=== PATIENT | female | born 1945 | race Hispanic/Latino ===

== ENCOUNTER 2022-04-05 08:30 | Inpatient (IN) | payer MEDICARE ==
[2022-04-02 16:41] LABS: BASOPHILS % (AUTO) 0.2 % (0.0-5.0); EOSINOPHILS % (AUTO) 2.4 % (0.0-8.0); HEMATOCRIT 34.2 % (36-48); LYMPHOCYTES % (AUTO) 28.7 % (21.0-51.0); MEAN CORPUSCULAR HEMOGLOBIN 28.4 pg (27.0-33.0); MEAN CORPUSCULAR HGB CONC 31.9 g/dL (32.0-36.0); MEAN CORPUSCULAR VOLUME 89.1 fL (79-99); MONOCYTES % (AUTO) 5.8 % (3.0-13.0); NEUTROPHILS % (AUTO) 62.7 % (40.0-77.0); PLATELET COUNT (AUTO) 192 K/uL (130-400); RED BLOOD CELL COUNT(AUTO) 3.84 MIL/uL (4.00-5.50); RED CELL DISTRIBUTION WIDTH 18.4 % (11.0-15.5); WHITE BLOOD COUNT (AUTO) 8.3 K/uL (4.8-10.8)
[2022-04-02 16:55] LABS: INR 0.93 (0.85-1.15); PROTHROMBIN TIME 9.9 SEC (9.6-11.6)
[2022-04-02 16:57] LABS: CREATININE 1.6 mg/dL (0.5-1.5); PARTIAL THROMBOPLASTIN TIME 24.7 SEC (26.3-35.5); POTASSIUM 4.4 mmol/L (3.5-5.1); TOTAL PROTEIN, SERUM 8.6 g/dL (6.0-8.3)
[2022-04-02 17:16] LABS: ABG BASE EXCESS 2.1 mmol/L (-2.0-3.0); ABG OXYGEN SATURATION 96.6 % (95.0-99.0); ABG PCO2 38 mmHg (32-45)
[2022-04-02 17:40] LABS: B-TYPE NATRIURETIC PEPTIDE 405 pg/mL (0-100)
[2022-04-04 10:06] VITALS: BP 140/71
[~2022-04-05] VITALS: Ht 165.1 cm; Wt 73.0 kg
[2022-04-05] VITALS (24 sets, daily range): BP systolic 76–155; BP diastolic 41–75
[~2022-04-05 08:30] MED LIST: ATOR10TA69 PO; CARV12.511 PO; CEFAZOLIN SODIUM 1 GM VIAL ONE; DAPA10TA PO; FUROSEMIDE PO; INSU100V37 SQ; METF-445 PO; SPIR25TA6 PO
[2022-04-05] MEDS ORDERED: NOREPINEPHRINE BITARTRATE 8 MG in 0.9% NACL 250ML 250 ML IV PRN (09:30)
[2022-04-05] MEDS ORDERED: EPINEPHRINE PF 1MG (1:1,000) 10 MG in 0.9% NACL 250ML 240 ML IV PRN ×2 (09:30→16:00)
[2022-04-05] MEDS ORDERED: AMINOCAPROIC ACID 5,000MG VIAL 15,000 MG in 0.9% NACL 500ML IV.SOLN 420 ML IV PRN (09:30)
[2022-04-05] MEDS ORDERED: 0.9%NACL 1000ML 1,000 ML IV ONE (10:03)
[2022-04-05] MEDS: CEFAZOLIN SODIUM 1 GM VIAL ONE ×2 (10:20→14:30)
[2022-04-05] MEDS ORDERED: NITROGLYCERIN 50MG/D5W 250ML 1 BOT ONE (10:57)
[2022-04-05] MEDS ORDERED: LIDOCAINE PF 100MG/5ML (2%) SYRINGE 5ML ONE (12:24)
[2022-04-05] MEDS ORDERED: PROTAMINE SULFATE 10 MG/ML 25ML VIAL IV ONE (12:24)
[2022-04-05] MEDS ORDERED: ESMOLOL HCL 10 MG/ML 10 ML VIAL ONE (12:24)
[2022-04-05] MEDS ORDERED: FENTANYL CITRATE PF 50 MCG/1 ML 20ML VIAL IJ ONE (12:25)
[2022-04-05] MEDS ORDERED: MIDAZOLAM HCL 1 MG/ML 2ML VIAL ONE (12:25)
[2022-04-05] MEDS ORDERED: ROCURONIUM 10MG/1ML SYR 10 MG/ML ML ONE (12:25)
[2022-04-05] MEDS ORDERED: HEPARIN 10,000 UNIT/10ML (1,000 UNIT/ML) VIAL ONE (12:25)
[2022-04-05] MEDS ORDERED: AMINOCAPROIC ACID 5,000MG VIAL ONE (12:25)
[2022-04-05] MEDS ORDERED: PROPOFOL 10 MG/ML 20ML VIAL IV ONE (12:25)
[2022-04-05] MEDS ORDERED: EPINEPHRINE PF 1MG (1:1,000) 1 MG/ML AMP ONE (12:25)
[2022-04-05] MEDS ORDERED: NOREPINEPHRINE BITARTRATE 1 MG/1 ML ML IV ONE (12:25)
[2022-04-05] MEDS ORDERED: SODIUM BICARB 50MEQ 50ML VIAL 100 ML ONE (12:25)
[2022-04-05] MEDS ORDERED: KETAMINE HCL 100 MG/ML 5ML VIAL IJ ONE (13:57)
[2022-04-05] MEDS ORDERED: ROPIVACAINE 0.5% 5MG/ML 30ML IJ ONE (14:30)
[2022-04-05] MEDS ORDERED: CACL 1GM SYG IVP ONE (14:52)
[2022-04-05] MEDS ORDERED: ALBUMIN (HUMAN) 25% 50 ML IV ONE (14:52)
[2022-04-05] MEDS ORDERED: FUROSEMIDE 20MG VIAL IVP ONE (14:52)
[2022-04-05] MEDS ORDERED: PHENYLEPHRINE HCL 10 MG/ML 1ML VIAL IV ONE (14:52)
[2022-04-05] MEDS ORDERED: LIDOCAINE PF 100MG/5ML (2%) SYRINGE 5ML IVP ONE (14:52)
[2022-04-05] MEDS ORDERED: AMINOCAPROIC ACID 5,000MG VIAL IV ONE (14:52)
[2022-04-05 15:18] LABS: ABG BASE EXCESS -4.5 mmol/L (-2.0-3.0); ABG HCO3 20.2 mmol/L (21.0-28.0); ABG OXYGEN SATURATION 98.1 % (95.0-99.0); ABG PCO2 36 mmHg (32-45)
[2022-04-05 15:52] LABS: ABG BASE EXCESS -1.7 mmol/L (-2.0-3.0); ABG HCO3 21.3 mmol/L (21.0-28.0); ABG OXYGEN SATURATION 99.2 % (95.0-99.0); ABG PCO2 29 mmHg (32-45)
[2022-04-05] MEDS ORDERED: 0.9% NACL 500ML IV.SOLN 500 ML IV SCH (16:00)
[2022-04-05] MEDS ORDERED: POTASSIUM PHOS 15 mMOL+NS250ML 250 ML IV PRN (16:00)
[2022-04-05] MEDS ORDERED: ONDANSETRON 4MG INJ IV PRN (16:00)
[2022-04-05] MEDS ORDERED: ACETAMINOPHEN 325 MG TAB PO PRN ×2 (16:00)
[2022-04-05] MEDS ORDERED: 0.9%NACL 1000ML 1,000 ML IV SCH (16:00)
[2022-04-05] MEDS ORDERED: ACETAMINOPHEN 650 MG SUPPOSITORY RC PRN (16:00)
[2022-04-05] MEDS ORDERED: MORPHINE 4 MG SYG IV PRN (16:00)
[2022-04-05] MEDS ORDERED: MORPHINE 2 MG SYG IV PRN (16:00)
[2022-04-05] MEDS ORDERED: CALCIUM GLUC 1GM 1 GM in 0.9%NACL 50ML 50 ML IV PRN (16:00)
[2022-04-05] MEDS ORDERED: GLUCAGON 1MG KIT 1 MG ML IM PRN (16:00)
[2022-04-05] MEDS ORDERED: DEXTROSE 50%-WATER 50 ML DISP.SYRIN IV PRN (16:00)
[2022-04-05] MEDS ORDERED: PROPOFOL 1000 MG/100 ML 100 ML IV PRN (16:00)
[2022-04-05] MEDS ORDERED: NITROGLYCERIN 50MG/D5W 250ML 250 BOT IV SCH (16:00)
[2022-04-05] MEDS ORDERED: MAGNESIUM 2GM PREMIX 50ML 50 ML IV PRN (16:00)
[2022-04-05] MEDS ORDERED: NOREPINEPHRIN 4MG/NS 250ML 250 ML IV PRN (16:00)
[2022-04-05] MEDS ORDERED: ALBUMIN (HUMAN) 5% 250 ML IV PRN (16:00)
[2022-04-05] MEDS ORDERED: INSULIN REGULAR, HUMAN 3ML 100 UNIT in 0.9%NACL 100ML 99 ML IV SCH ×2 (16:00)
[2022-04-05] MEDS ORDERED: TRAMADOL HCL 50 MG TABLET PO PRN (16:00)
[2022-04-05] MEDS ORDERED: AMINOCAPROIC ACID 5,000MG VIAL 15,000 MG in 0.9% NACL 250ML 250 ML IV SCH (16:00)
[2022-04-05] MEDS ORDERED: 0.9%NACL 10ML VIAL IVP PRN (16:00)
[2022-04-05 16:26] LABS: ABG BASE EXCESS 5.4 mmol/L (-2.0-3.0); ABG HCO3 27.2 mmol/L (21.0-28.0); ABG OXYGEN SATURATION 98.8 % (95.0-99.0); ABG PCO2 29 mmHg (32-45)
[2022-04-05] MEDS ORDERED: AMIODARONE 150MG VIAL ONE (16:46)
[2022-04-05 16:53] LABS: ABG BASE EXCESS -4.8 mmol/L (-2.0-3.0); ABG HCO3 18.6 mmol/L (21.0-28.0); ABG OXYGEN SATURATION 99.1 % (95.0-99.0); ABG PCO2 27 mmHg (32-45)
[2022-04-05] MEDS ORDERED: 0.2% ROPIVACAINE 600ML Q-PUMP IRRIG ONE (17:00)
[2022-04-05 17:22] LABS: ABG HCO3 21.9 mmol/L (21.0-28.0); ABG OXYGEN SATURATION 98.6 % (95.0-99.0); ABG PCO2 34 mmHg (32-45)
[2022-04-05] MEDS ORDERED: GLYCOPYRROLATE 1 MG/5 ML SYRINGE ONE (17:22)
[2022-04-05 18:15] LABS: HEMATOCRIT 27.1 % (36-48); MEAN CORPUSCULAR HEMOGLOBIN 28.9 pg (27.0-33.0); MEAN CORPUSCULAR HGB CONC 33.2 g/dL (32.0-36.0); MEAN CORPUSCULAR VOLUME 87.1 fL (79-99); RED BLOOD CELL COUNT(AUTO) 3.11 MIL/uL (4.00-5.50); RED CELL DISTRIBUTION WIDTH 17.4 % (11.0-15.5); WHITE BLOOD COUNT (AUTO) 12.8 K/uL (4.8-10.8)
[2022-04-05 18:28] LABS: CREATININE 1.1 mg/dL (0.5-1.5); MAGNESIUM 3.1 mg/dL (1.80-2.40); PHOSPHORUS 4.1 mg/dL (2.5-4.9); POTASSIUM 4.5 mmol/L (3.5-5.1)
[2022-04-05 18:29] LABS: INR 1.09 (0.85-1.15); PROTHROMBIN TIME 11.8 SEC (9.6-11.6)
[2022-04-05 18:31] LABS: PARTIAL THROMBOPLASTIN TIME 25.1 SEC (26.3-35.5)
[2022-04-05] MEDS: SODIUM BICARB 50MEQ 50ML VIAL IV PRN (18:47)
[2022-04-05] MEDS: POTASSIUM CHLORIDE 20MEQ/100ML 100 ML IV PRN (19:54)
[2022-04-05 21:34] LABS: ABG BASE EXCESS 0.2 mmol/L (-2.0-3.0); ABG HCO3 24.1 mmol/L (21.0-28.0); ABG PCO2 36 mmHg (32-45)
[2022-04-05] MEDS: CEFAZOLIN SODIUM 1 GM VIAL IV SCH (21:50)
[2022-04-05] MEDS: ATORVASTATIN 10 MG TABLET PO SCH (21:51)
[2022-04-05] MEDS: FAMOTIDINE 20MG VIAL IV SCH (21:51)
[2022-04-05 23:28] LABS: ABG BASE EXCESS 0.3 mmol/L (-2.0-3.0); ABG HCO3 24.7 mmol/L (21.0-28.0); ABG OXYGEN SATURATION 98.3 % (95.0-99.0); ABG PCO2 39 mmHg (32-45)
[2022-04-06] VITALS (46 sets, daily range): BP systolic 105–168; BP diastolic 31–84
[2022-04-06 02:18] LABS: ABG BASE EXCESS -1.9 mmol/L (-2.0-3.0); ABG HCO3 21.9 mmol/L (21.0-28.0); ABG OXYGEN SATURATION 98.5 % (95.0-99.0); ABG PCO2 33 mmHg (32-45)
[2022-04-06] MEDS: SODIUM BICARB 50MEQ 50ML VIAL IV PRN (02:18)
[2022-04-06 03:54] LABS: HEMATOCRIT 24.7 % (36-48); MEAN CORPUSCULAR HEMOGLOBIN 28.9 pg (27.0-33.0); MEAN CORPUSCULAR HGB CONC 32.4 g/dL (32.0-36.0); MEAN CORPUSCULAR VOLUME 89.2 fL (79-99); RED BLOOD CELL COUNT(AUTO) 2.77 MIL/uL (4.00-5.50); RED CELL DISTRIBUTION WIDTH 18.1 % (11.0-15.5)
[2022-04-06 04:04] LABS: INR 1.01 (0.85-1.15)
[2022-04-06 04:06] LABS: PARTIAL THROMBOPLASTIN TIME 26.8 SEC (26.3-35.5)
[2022-04-06 04:13] LABS: CREATININE 1.4 mg/dL (0.5-1.5); MAGNESIUM 2.6 mg/dL (1.80-2.40); PHOSPHORUS 5.2 mg/dL (2.5-4.9)
[2022-04-06 04:13] LABS: ABG BASE EXCESS 0.1 mmol/L (-2.0-3.0); ABG HCO3 24.6 mmol/L (21.0-28.0); ABG OXYGEN SATURATION 98.5 % (95.0-99.0); ABG PCO2 39 mmHg (32-45)
[2022-04-06] MEDS: CEFAZOLIN SODIUM 1 GM VIAL IV SCH ×2 (05:31→14:28)
[2022-04-06] MEDS: ASPIRIN 81 MG EC TAB PO SCH (10:04)
[2022-04-06] MEDS: FUROSEMIDE 20MG VIAL IV SCH ×2 (10:06→20:39)
[2022-04-06] MEDS ORDERED: ROPIVACAINE 0.2% 2MG/ML 100ML VIAL IJ ONE (12:00)
[2022-04-06] MEDS ORDERED: CEFAZOLIN SODIUM 1 GM VIAL ONE (14:27)
[2022-04-06] MEDS: ATORVASTATIN 10 MG TABLET PO SCH (20:33)
[2022-04-06] MEDS: FAMOTIDINE 20MG VIAL IV SCH (20:33)
[2022-04-07] VITALS (30 sets, daily range): BP systolic 83–163; BP diastolic 23–93
[2022-04-07 03:51] LABS: HEMATOCRIT 22.1 % (36-48); MEAN CORPUSCULAR HGB CONC 32.1 g/dL (32.0-36.0); MEAN CORPUSCULAR VOLUME 90.2 fL (79-99); RED BLOOD CELL COUNT(AUTO) 2.45 MIL/uL (4.00-5.50); RED CELL DISTRIBUTION WIDTH 18.5 % (11.0-15.5); WHITE BLOOD COUNT (AUTO) 12.9 K/uL (4.8-10.8)
[2022-04-07 04:18] LABS: CREATININE 1.6 mg/dL (0.5-1.5); POTASSIUM 3.5 mmol/L (3.5-5.1)
[2022-04-07] MEDS: POTASSIUM CHLORIDE 20MEQ/100ML 100 ML IV PRN (06:05)
[2022-04-07] MEDS: METOPROLOL TARTRATE 25 MG TAB PO SCH ×2 (08:48→20:12)
[2022-04-07] MEDS: FUROSEMIDE 20 MG TABLET PO SCH ×2 (08:49→16:18)
[2022-04-07] MEDS: FAMOTIDINE 20MG TAB PO SCH (08:49)
[2022-04-07] MEDS: ASPIRIN 81 MG EC TAB PO SCH (08:49)
[2022-04-07] MEDS: TRAMADOL HCL 50 MG TABLET PO PRN (08:57)
[2022-04-07] MEDS: INSULIN HUMULIN R 100 UNIT/ML 3ML SQ SCH ×3 (11:36→20:13)
[2022-04-07] MEDS: ATORVASTATIN 10 MG TABLET PO SCH (20:12)
[2022-04-08] VITALS (13 sets, daily range): BP systolic 97–150; BP diastolic 28–69
[2022-04-08 04:21] LABS: MEAN CORPUSCULAR HEMOGLOBIN 29.2 pg (27.0-33.0); MEAN CORPUSCULAR HGB CONC 32.7 g/dL (32.0-36.0); MEAN CORPUSCULAR VOLUME 89.4 fL (79-99); RED BLOOD CELL COUNT(AUTO) 2.26 MIL/uL (4.00-5.50); RED CELL DISTRIBUTION WIDTH 18.1 % (11.0-15.5); WHITE BLOOD COUNT (AUTO) 10.6 K/uL (4.8-10.8)
[2022-04-08 04:33] LABS: CREATININE 1.2 mg/dL (0.5-1.5); POTASSIUM 3.1 mmol/L (3.5-5.1)
[2022-04-08 04:38] LABS: HEMATOCRIT 20.2 % (36-48)
[2022-04-08] MEDS: POTASSIUM CHLORIDE 20MEQ/100ML 100 ML IV PRN ×2 (05:11→06:58)
[2022-04-08] MEDS: INSULIN HUMULIN R 100 UNIT/ML 3ML SQ SCH ×4 (05:24→21:00)
[2022-04-08 06:24] LABS: HEMATOCRIT 20.7 % (36-48)
[2022-04-08] MEDS: ENOXAPARIN SODIUM 30 MG/0.3 ML SQ SCH (08:14)
[2022-04-08] MEDS: ASPIRIN 81 MG EC TAB PO SCH (08:16)
[2022-04-08] MEDS: METOPROLOL TARTRATE 25 MG TAB PO SCH ×2 (08:16→20:09)
[2022-04-08] MEDS: FUROSEMIDE 20 MG TABLET PO SCH ×2 (08:17→16:08)
[2022-04-08] MEDS: FAMOTIDINE 20MG TAB PO SCH (08:17)
[2022-04-08] MEDS ORDERED: LIDOCAINE HCL-MPF 1% 2ML VIAL IV PRN (13:30)
[2022-04-08] MEDS ORDERED: KCL 20 MEQ ERTAB PO PRN (13:30)
[2022-04-08] MEDS ORDERED: POTASSIUM CHLORIDE 20MEQ/100ML 100 ML IV PRN (13:30)
[2022-04-08] MEDS: POTASSIUM CHLORIDE 10% ELIXIR 20 MEQ/15 ML UDCUP PO PRN ×3 (16:07→22:00)
[2022-04-08] MEDS: ATORVASTATIN 10 MG TABLET PO SCH (20:09)
[2022-04-08] MEDS: TRAMADOL HCL 50 MG TABLET PO PRN (20:10)
[2022-04-09] MEDS ORDERED: GABA-529 PO (03:37)
[2022-04-09] MEDS ORDERED: LEVO50CA4 PO (03:37)
[2022-04-09] MEDS ORDERED: CITA10TA89 PO (03:37)
[2022-04-09] MEDS ORDERED: FOLI0.8T2 PO (03:37)
[2022-04-09] MEDS ORDERED: ROSU20TA31 PO (03:37)
[2022-04-09 04:09] LABS: HEMATOCRIT 25.1 % (36-48); MEAN CORPUSCULAR HEMOGLOBIN 29.5 pg (27.0-33.0); MEAN CORPUSCULAR HGB CONC 33.1 g/dL (32.0-36.0); MEAN CORPUSCULAR VOLUME 89.3 fL (79-99); NUCLEATED RED BLOOD CELLS 0.2 % (0.0-0.19); RED BLOOD CELL COUNT(AUTO) 2.81 MIL/uL (4.00-5.50); RED CELL DISTRIBUTION WIDTH 16.5 % (11.0-15.5); WHITE BLOOD COUNT (AUTO) 8.9 K/uL (4.8-10.8)
[2022-04-09 04:10] VITALS: BP 143/69
[2022-04-09 04:27] LABS: CREATININE 1.1 mg/dL (0.5-1.5); POTASSIUM 3.4 mmol/L (3.5-5.1)
[2022-04-09] MEDS: POTASSIUM CHLORIDE 10% ELIXIR 20 MEQ/15 ML UDCUP PO PRN ×2 (05:01→06:18)
[2022-04-09 07:00] VITALS: BP 140/72
[2022-04-09] MEDS: INSULIN HUMULIN R 100 UNIT/ML 3ML SQ SCH ×4 (07:30→21:18)
[2022-04-09] MEDS: ASPIRIN 81 MG EC TAB PO SCH (10:30)
[2022-04-09] MEDS: FUROSEMIDE 20 MG TABLET PO SCH ×2 (10:30→16:55)
[2022-04-09] MEDS: FAMOTIDINE 20MG TAB PO SCH (10:30)
[2022-04-09] MEDS: METOPROLOL TARTRATE 25 MG TAB PO SCH ×2 (10:31→21:18)
[2022-04-09] MEDS: ENOXAPARIN SODIUM 30 MG/0.3 ML SQ SCH (10:31)
[2022-04-09 11:00] VITALS: BP 126/58
[2022-04-09] MEDS: TRAMADOL HCL 50 MG TABLET PO PRN (15:24)
[2022-04-09 16:00] VITALS: BP 121/58
[2022-04-09 20:37] VITALS: BP 130/65
[2022-04-09] MEDS: ATORVASTATIN 10 MG TABLET PO SCH (21:18)
[2022-04-10 00:28] VITALS: BP 106/49
[2022-04-10 04:25] VITALS: BP 118/61
[2022-04-10 07:00] VITALS: BP 142/63
[2022-04-10] MEDS: INSULIN HUMULIN R 100 UNIT/ML 3ML SQ SCH ×2 (07:30→12:19)
[2022-04-10] MEDS: FAMOTIDINE 20MG TAB PO SCH (08:54)
[2022-04-10] MEDS: ASPIRIN 81 MG EC TAB PO SCH (08:54)
[2022-04-10] MEDS: METOPROLOL TARTRATE 25 MG TAB PO SCH (08:54)
[2022-04-10] MEDS: FUROSEMIDE 20 MG TABLET PO SCH (08:54)
[2022-04-10] MEDS ORDERED: FURO20TA6 PO (10:26)
[2022-04-10] MEDS ORDERED: AEC81 PO (10:26)
[2022-04-10] MEDS ORDERED: METO25 PO (10:26)
[2022-04-10 11:00] VITALS: BP 111/53
== END 2022-04-10 16:20 | disposition home or self-care (01) | DRG 219 ==
LOC: DAHIP 10:00 → 2CV 15:24 → 2CH 04-06 08:23 → 2DH 04-08 15:33
PROVIDERS: ADMIT Thoracic Surgery (Cardiothoracic Vascular Surgery); ATTEND Thoracic Surgery (Cardiothoracic Vascular Surgery)
PROC: 30233N1 Transfusion of Nonautologous Red Blood Cells into Peripheral Vein, Percutaneous Approach (ICD-10-PCS; 2022-04-05)
PROC: 02L70ZK Occlusion of Left Atrial Appendage, Open Approach (ICD-10-PCS; 2022-04-05)
PROC: 02RG08Z Replacement of Mitral Valve with Zooplastic Tissue, Open Approach (ICD-10-PCS; principal; 2022-04-05 13:56)
DX: I34.0 Nonrheumatic mitral (valve) insufficiency (principal); J95.1 Acute pulmonary insufficiency following thoracic surgery; I50.32 Chronic diastolic (congestive) heart failure; Z20.822 Contact with and (suspected) exposure to COVID-19; I25.10 Atherosclerotic heart disease of native coronary artery without angina pectoris; E78.5 Hyperlipidemia, unspecified; D64.9 Anemia, unspecified; E78.00 Pure hypercholesterolemia, unspecified; I11.0 Hypertensive heart disease with heart failure; I48.91 Unspecified atrial fibrillation; Z79.899 Other long term (current) drug therapy
CPT/HCPCS: 36415; 36600; 71045; 80048; 80053; 80061; 82435; 82803; 82947; 82948; 83036; 83605; 83735; 83880; 84100; 84132; 84295; 85014; 85018; 85025; 85027; 85347; 85610; 85730; 86850; 86900; 86901; 86923; 87426; 87641; 93005; 93312; 93318; 93880; 94002; 94003; 94010; 94150; 94760; 97039; A7048; G0378; J0171; J0282; J0690; J1644; J1650; J1815; J1940; J2001; J2250; J2370; J2405; J2704; J2720; J2795; J3010; J3480; J3490; J7030; J7040; P9016; P9047